=== PATIENT | female | born 1960 | race Caucasian/White ===

== ENCOUNTER 2019-03-24 21:08 | Emergency (ER) | payer BC ==
[~2019-03-24] VITALS: Wt 70.0 kg
[2019-03-24] MEDS ORDERED: ESCI5TAB10 PO (23:59)
[2019-03-24] MEDS ORDERED: ASPI-535 PO (23:59)
[2019-03-24] MEDS ORDERED: CARV6.2579 PO (23:59)
[2019-03-24] MEDS ORDERED: AMLO5TAB4 PO (23:59)
[2019-03-24] MEDS ORDERED: CITA20TA8 PO (23:59)
[2019-03-24] MEDS ORDERED: IBUP-1982 PO (23:59)
--- NOTE | 2019-03-25 01:33 | ERD ---
ER Documentation Chief Complaint Chief Complaint konrad ra from home for cp x 9 hours today, feeling heavy HPI Is experiencing about amount for chest pain for 9 hours today. She states she been under a lot of stress lately. She denies any fevers chills nausea vomiting. She denies any other current complaints. Pain is mild to moderate intensity no exacerbating alleviating factors. ROS All systems reviewed and are negative except as per history of present illness. Medications Home Meds Reported Medications Ibuprofen* (Ibuprofen*) 200 Mg Capsule, 200 MG PO QID PRN for PAIN, CAP 03/24/19 Amlodipine Besylate* (Norvasc*) 5 Mg Tablet, 5 MG PO DAILY, TAB 03/24/19 Escitalopram Oxalate* (Escitalopram Oxalate*) 5 Mg Tablet, 5 MG PO DAILY, #30 TAB 03/24/19 Carvedilol* (Carvedilol*) 6.25 Mg Tablet, 6.25 MG PO BID WITH MEALS, #60 TAB 03/24/19 Aspirin Ec (Aspir 81) 81 Mg Tablet.dr, 81 MG PO DAILY, #30 TAB 03/24/19 Citalopram Hydrobromide* (Citalopram Hydrobromide*) 20 Mg Tablet, 20 MG PO DAILY, #30 TAB 03/24/19 Allergies Allergies: Coded Allergies: No Known Allergy (Unverified , 03/24/19) PMhx/Soc History of Surgery: Yes (STENT PLACEMENT) Hx Respiratory Disorders: No Hx Cardiac Disorders: Yes (HI,HTN ) Hx Miscellaneous Medical Probl: Yes (STROKE,MS ) Hx Alcohol Use: No Hx Substance Use: Yes (MARIJUANA) Hx Tobacco Use: No Smoking Status: Unknown if ever smoked Physical Exam Vitals Vital Signs Date Temp Pulse Resp B/P (MAP) Pulse Ox O2 O2 Flow FiO2 Time Delivery Rate 03/24/19 54 13 165/76 100 Room Air 23:50 (105) 03/24/19 Nasal 2 21:34 Cannula 03/24/19 98.1 59 19 155/69 99 21:11 (97) Physical Exam Const: No acute distress Head: Atraumatic Eyes: Normal Conjunctiva ENT: Normal External Ears, Nose and Mouth. Neck: Full range of motion. No meningismus. Resp: Clear to auscultation bilaterally Cardio: Regular rate and rhythm, no murmurs Abd: Soft, non tender, non distended. Normal bowel sounds Skin: No petechiae or rashes Back: No midline or flank tenderness Ext: No cyanosis, or edema Neur: Awake and alert Psych: Normal Mood and Affect Result Diagram: 03/24/19211903/24/192119 Results 24 hrs Laboratory Tests Test 03/24/19 21:20 White Blood Count 8.3 10^3/ul Red Blood Count 4.33 10^6/ul Hemoglobin 12.9 g/dl Hematocrit 37.7 % Mean Corpuscular Volume 87.1 fl Mean Corpuscular Hemoglobin 29.8 pg Mean Corpuscular Hemoglobin Concent 34.2 g/dl Red Cell Distribution Width 13.9 % Platelet Count 179 10^3/UL Mean Platelet Volume 10.3 fl Immature Granulocytes % 0.200 % Neutrophils % 52.3 % Lymphocytes % 38.2 % Monocytes % 6.6 % Eosinophils % 2.3 % Basophils % 0.4 % Nucleated Red Blood Cells % 0.0 /100WBC Immature Granulocytes # 0.020 10^3/ul Neutrophils # 4.3 10^3/ul Lymphocytes # 3.2 10^3/ul Monocytes # 0.6 10^3/ul Eosinophils # 0.2 10^3/ul Basophils # 0.0 10^3/ul Nucleated Red Blood Cells # 0.0 10^3/ul Sodium Level 142 mmol/L Potassium Level 4.3 mmol/L Chloride Level 109 mmol/L Carbon Dioxide Level 22 mmol/L Anion Gap 11 Blood Urea Nitrogen 29 mg/dl Creatinine 0.59 mg/dl Est Glomerular Filtrat Rate mL/min > 60 mL/min Glucose Level 149 mg/dl Calcium Level 9.4 mg/dl Total Bilirubin 0.5 mg/dl Direct Bilirubin 0.00 mg/dl Indirect Bilirubin 0.5 mg/dl Aspartate Amino Transf (AST/SGOT) 27 IU/L Alanine Aminotransferase (ALT/SGPT) 14 IU/L Alkaline Phosphatase 75 IU/L Troponin I < 0.012 ng/ml B-Type Natriuretic Peptide 470 PG/ML Total Protein 7.8 g/dl Albumin 4.1 g/dl Globulin 3.70 g/dl Albumin/Globulin Ratio 1.10 Procedures/MDM EKG: Rate/Rhythm: [Normal Sinus Rhythm] QRS, ST, T-waves: [No changes consistent w/ acute ischemia] Impression: [No evidence of ischemia or arrhythmia] Chest X-ray 1V Interpreted by me: Soft Tissue: No acute abnormalities Bones: No acute abnormalities Mediastinum/Cardiac Silhouette/Lungs: [No acute abnormalities] Medical decision making: Patient's thoracic symptoms have stabilized while in the department and are stable for outpatient follow up. Exam and work up not consistent w/ ischemia, arrhythmia, PE or dissection. I did advise patient to stay overnight for an observation admission, however the patient decided to be discharged home. I explained that she needs to call [phone] if needed for any return of chest pain. She is been chest pain-free during her duration here in the ER. She said no EKG changes. At this point is clinically stable. Patient understands risks and involved with non-observation trial of outpatient management. Departure Diagnosis: Primary Impression: Chest pain Chest pain type: unspecified Qualified Codes: R07.9 - Chest pain, u nspecified Condition: Stable Patient Instructions: Chest Pain, Uncertain Cause NINI PORTILLO March 25, 2019 01:33
[2019-03-25 01:37] VITALS: BP 144/75; PULSE 65; RESP 18
--- NOTE | 2019-03-28 15:07 | RADRPT ---
Vent Rate: 57 bpm RR Interval: 0 msec [place] Interval: 158 msec QRS Duration: 102 msec QT Interval: 436 msec QTC Interval: 424 msec P-R-T [place]: 51 - 47 - 112 degrees Sinus bradycardia Anterior infarct , age undetermined T wave abnormality, consider lateral ischemia Abnormal ECG Electronically Signed By: [facility]
== END 2019-03-25 02:44 | disposition home or self-care (01) ==
LOC: E/R 21:08
DX: R07.9 Chest pain, unspecified (principal); I10 Essential (primary) hypertension; I25.2 Old myocardial infarction; Z79.82 Long term (current) use of aspirin; Z98.61 Coronary angioplasty status
CPT/HCPCS: 36415; 71045; 80053; 83880; 84484; 85025; 93005